=== PATIENT | male | born 1965 | race Caucasian/White ===

== ENCOUNTER 2018-07-28 21:45 | Emergency (ER) | payer OTHER ==
[~2018-07-28] VITALS: Ht 167.6 cm; Wt 123.8 kg
[~2018-07-28 21:45] MED LIST: ACIDOPHILUS CA1 EACH PO; ACTOS15 MG PO; ALLOPURINOL PO; ALPRAZOLAM0.5 MG PO; ASPIRIN81 MG PO; BISACODYL5 MG PO; CLONIDINE HCL0.1 MG PO; DIFLUCAN100 MG PO; DOXEPIN HCL10 MG PO; DOXYCYCLINE HY100 MG PO; EFFEXOR XR150 MG PO; GABAPENTIN100 MG PO; GLUCOPHAGE1000 MG PO; GLUCOPHAGE500 MG PO; HUMALOG SC; ISOSORBIDE DINI30 MG PO; LACTULOSE20 GM/30 M PO; LASIX20 MG PO; LEVEMIR100 UNIT/1 SC; LISINOPRIL5 MG PO; LITHIUM CARBON300 M2 PO; MAGNESIUM OXID400 MG PO; METHYLPHENIDATE10 MG PO; METOPROLOL SUCC25 MG PO; ONDANSETRON HCL4 MG PO; OXYCONTIN60 MG PO; PRAVASTATIN SOD20 MG PO; PYRIDOXINE HCL25 MG PO; RISPERIDONE1 MG PO; SPIRONOLACTONE50 MG PO; SUBOXONE 2 MG-1 EAC2 PO; SUBOXONE 8 MG-1 EAC2 SL; TAMSULOSIN HCL0.4 MG PO; THIAMINE PO; VITAMIN D400 UNIT PO; XANAX0.5 MG PO; XIFAXAN550 MG PO
--- OUTSIDE RECORDS SUMMARY | 2018-07-28 21:49 | XMS REPORT ---
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 Allergies, Adverse Reactions, Alerts Allergy Name Allergy Type Status Severity Reaction(s) Onset Date Inactive Date Treating Clinician Comments Penicillins DA Active SV 2018-07-18 00:00:00 iodine DA Active U 2018-07-18 00:00:00 propoxyphene DA Active U 2018-07-18 00:00:00 acetaminophen DA Active U 2018-07-18 00:00:00 hydrochlorothiazide DA Active U 2018-07-18 00:00:00 ketorolac DA Active U 2018-07-18 00:00:00 shellfish derived DA Active U 2018-07-18 00:00:00 Penicillins DA Active SV 2018-01-27 00:00:00 iodine DA Active U 2018-01-27 00:00:00 propoxyphene DA Active U 2018-01-27 00:00:00 acetaminophen DA Active U 2018-01-27 00:00:00 hydrochlorothiazide DA Active U 2018-01-27 00:00:00 ketorolac DA Active U 2018-01-27 00:00:00 Penicillins DA Active SV 2016-07-21 00:00:00 iodine DA Active U 2016-07-21 00:00:00 propoxyphene DA Active U 2016-07-21 00:00:00 acetaminophen DA Active U 2016-07-21 00:00:00 hydrochlorothiazide DA Active U 2016-07-21 00:00:00 ketorolac DA Active U 2016-07-21 00:00:00 SEAFOOD DA Active SV 2013-10-29 00:00:00 Medications This patient has no known medications. Results Test Description Test Time Test Comments Text Results Atomic Results Result Comments URINALYSIS COMPLETE 2018-07-18 22:08:00 UA COLOR (test code=COLU) LIGHT YELLOW YELLOW UA APPEARANCE (test code=APPU) CLEAR CLEAR UA GLUCOSE DIPSTICK (test code=DGLUU) NEGATIVE mg/dL NEGATIVE UA BILIRUBIN DIPSTICK (test code=BILU) NEGATIVE mg/dL NEGATIVE UA KETONE DIPSTICK (test code=KETU) Negative mg/dL NEGATIVE UA SPECIFIC GRAVITY (test code=SGU) 1.010 1.001-1.035 UA BLOOD DIPSTICK (test code=SHON) 3+ (Large) NEGATIVE UA PH DIPSTICK (test code=CARMEN) 6.0 5.0-8.0 UA PROTEIN DIPSTICK (test code=PROU) 30 (1+) mg/dL NEGATIVE UA UROBILINIOGEN DIPSTICK (test code=URO) NEGATIVE mg/dL NEGATIVE UA NITRITE DIPSTICK (test code=PAVEL) NEGATIVE NEGATIVE UA LEUKOCYTE ESTERASE W REFLEX (test code=LEUUR) 3+ NEGATIVE UA WBC (test code=WBCU) 21-50 #/HPF 0-5 UA RBC (test code=RBCU) >20 #/HPF 0-5 UA HYALINE CAST (test code=HYALU) 0-2 #/LPF 0-5 Urine Source? Clean CatchURINALYSIS [id number] 22:06:00* Test Item Value Reference Range Comments UA COLOR (test code=COLU) LIGHT YELLOW YELLOW UA APPEARANCE (test code=APPU) CLEAR CLEAR UA GLUCOSE DIPSTICK (test code=DGLUU) NEGATIVE mg/dL NEGATIVE UA BILIRUBIN DIPSTICK (test code=BILU) NEGATIVE mg/dL NEGATIVE UA KETONE DIPSTICK (test code=KETU) Negative mg/dL NEGATIVE UA SPECIFIC GRAVITY (test code=SGU) 1.010 1.001-1.035 UA BLOOD DIPSTICK (test code=SHON) 3+ (Large) NEGATIVE UA PH DIPSTICK (test code=CARMEN) 6.0 5.0-8.0 UA PROTEIN DIPSTICK (test code=PROU) 30 (1+) mg/dL NEGATIVE UA UROBILINIOGEN DIPSTICK (test code=URO) NEGATIVE mg/dL NEGATIVE UA NITRITE DIPSTICK (test code=PAVEL) NEGATIVE NEGATIVE UA LEUKOCYTE ESTERASE W REFLEX (test code=LEUUR) 3+ NEGATIVE UA WBC (test code=WBCU) per HPF 0-5 Urine Source? Clean CatchBASIC METABOLIC [id number] 20:00:00* Test Item Value Reference Range Comments SODIUM (test code=NA) 136 mmol/L 136-145 POTASSIUM (test code=K) 4.2 mmol/L 3.5-5.1 CHLORIDE (test code=CL) 100.0 mmol/L 98-107 CARBON DIOXIDE (test code=CO2) 27.0 mmol/L 21-32 ANION GAP (test code=GAP) 13.2 10-20 GLUCOSE (test code=GLU) 345 mg/dL 74-106 BLOOD UREA NITROGEN (test code=BUN) 19 mg/dL 7-18 GLOMERULAR FILTRATION RATE (test code=GFR) > 60 mL/min >=60 Estimated GFR by using Modified MDRD formula.Chronic kidney disease is defined as either kidney damageor GFR <60 mL/min/1.73 m2 for >3 months. CREATININE (test code=CREAT) 1.20 mg/dL 0.7-1.3 BUN/CREATININE RATIO (test code=BUN/CREA) 15.8 10-20 CALCIUM (test code=CA) 8.8 mg/dL 8.5-10.1 HEPATIC FUNCTION [id number] 20:00:00* Test Item Value Reference Range Comments TOTAL PROTEIN (test code=PROT) 7.7 gram/dL 6.4-8.2 ALBUMIN (test code=ALB) 3.1 g/dL 3.4-5.0 GLOBULIN (test code=GLOB) 4.6 gram/dL 2.7-4.2 ALBUMIN/GLOBULIN RATIO (test code=A/G) 0.7 0.75-1.50 BILIRUBIN TOTAL (test code=BILT) 0.40 mg/dL 0.0-1.0 BILIRUBIN DIRECT (test code=BILD) 0.19 mg/dL 0.0-0.20 SGOT/AST (test code=AST) 30 IUnit/L 15-37 SGPT/ALT (test code=ALT) 66 IUnit/L 12-78 ALKALINE PHOSPHATASE TOTAL (test code=ALKP) 166 IUnit/L 45-117 Note change in reference range due to change in reagent. CREATINE KINASE (CK)2018-07-18 20:00:00* Test Item Value Reference Range Comments CREATINE KINASE (CK) (test code=CK) 28 IUnit/L 26-208 [id number] 20:00:00* Test Item Value Reference Range Comments TROPONIN-I (test code=TROPI) <0.015 ng/mL 0-0.045 PROCALCITONIN (PCT)2018-07-18 19:49:00* Test Item Value Reference Range Comments PROCALCITONIN (PCT) (test code=PROCAL) 0.24 ng/ml Concentration Interpretation (ng/mL) <0.51 Sepsis is not likely. Local bacterial infection is possible. (LOW RISK for progression to Sepsis) 0.51 - 2.00 Sepsis is possible, but other conditions are known to elevate PCT as well. (MODERATE RISK for progression to Sepsis) > 2.00 Sepsis is likely, unless other causes are known. (HIGH RISK for progression to Severe Sepsis or Septic Shock) 10.00 High likelihood of Severe Sepsis or Septic or higher Shock. *Increased PCT levels may not always be related to systemic bacterial infection.*Low PCT levels do not automatically exclude the presence of bacterial infection.*All results should be interpreted taking into account the patients history. BASIC METABOLIC [id number] 19:44:00* Test Item Value Reference Range Comments SODIUM (test code=NA) 136 mmol/L 136-145 POTASSIUM (test code=K) 4.2 mmol/L 3.5-5.1 CHLORIDE (test code=CL) 100.0 mmol/L 98-107 CARBON DIOXIDE (test code=CO2) mmol/L 21-32 ANION GAP (test code=GAP) 10-20 GLUCOSE (test code=GLU) mg/dL 74-106 BLOOD UREA NITROGEN (test code=BUN) mg/dL 7-18 GLOMERULAR FILTRATION RATE (test code=GFR) mL/min >=60 CREATININE (test code=CREAT) mg/dL 0.7-1.3 BUN/CREATININE RATIO (test code=BUN/CREA) 10-20 CALCIUM (test code=CA) mg/dL 8.5-10.1 HEPATIC FUNCTION [id number] 19:44:00* Test Item Value Reference Range Comments TOTAL PROTEIN (test code=PROT) gram/dL 6.4-8.2 ALBUMIN (test code=ALB) g/dL 3.4-5.0 GLOBULIN (test code=GLOB) gram/dL 2.7-4.2 ALBUMIN/GLOBULIN RATIO (test code=A/G) 0.75-1.50 BILIRUBIN TOTAL (test code=BILT) mg/dL 0.0-1.0 BILIRUBIN DIRECT (test code=BILD) mg/dL 0.0-0.20 SGOT/AST (test code=AST) IUnit/L 15-37 SGPT/ALT (test code=ALT) IUnit/L 12-78 ALKALINE PHOSPHATASE TOTAL (test code=ALKP) IUnit/L 45-117 CREATINE KINASE (CK)2018-07-18 19:44:00* Test Item Value Reference Range Comments CREATINE KINASE (CK) (test code=CK) IUnit/L 26-208 [id number] 19:44:00* Test Item Value Reference Range Comments TROPONIN-I (test code=TROPI) ng/mL 0-0.045 LACTIC [id number] 19:25:00* Test Item Value Reference Range Comments LACTIC ACID (test code=LACT) 1.3 mmol/L 0.4-1.9 PROTHROMBIN [id number] 19:11:00* Test Item Value Reference Range Comments PROTHROMBIN TIME PATIENT (test code=PTP) 12.6 seconds 9.0-14.0 INTERNATIONAL NORMAL RATIO (test code=INR) 1.0 0.8-1.2 The therapeutic range for oral anticoagulant therapy formost indications is an international normalized ratio (INR)of between 2.0 and 3.0. The recommended therapeutic INRrange for various clinical situations is listed below: Clinical Situation INR range Pulmonary e mbolism treatment (2.0-3.0)Venous thrombosis treatmentVenous thrombosis prophylaxis (high risk surgery)Prevention of systemic embolism from: Acute myocardial infarction Valvular heart disease Atrial fibrillation Mechanical prosthetic heart valves (2.5-3.5) IS PATIENT ON ANTICOAGULANTS? NTHROMBOPLASTIN TIME [id number] 19:11:00* Test Item Value Reference Range Comments THROMBOPLASTIN TIME PARTIAL (test code=PTT) 28.3 seconds 25.0-36.5 IS PATIENT ON ANTICOAGULANTS? NCBC W/AUTO [id number] 19:05:00* Test Item Value Reference Range Comments WHITE BLOOD CELL (test code=WBC) 6.3 K/mm3 4.5-12.5 RED BLOOD CELL (test code=RBC) 4.17 mill/mm3 4.0-5.8 HEMOGLOBIN (test code=HGB) 10.7 gram/dL 13.0-17.5 HEMATOCRIT (test code=HCT) 33.9 % 42.0-52.0 MEAN CELL VOLUME (test code=MCV) 81.3 fL 80-98 MEAN CELL HGB (test code=MCH) 25.7 picogram 27.0-33.0 MEAN CELL HGB CONCETRATION (test code=MCHC) 31.6 gram/dL 33.0-36.0 RED CELL DISTRIBUTION WIDTH (test code=RDW) 13.6 % 11.6-16.2 RED CELL DISTRIBUTION WIDTH SD (test code=RDW-SD) 39.8 fL 37.0-51.0 PLATELET COUNT (test code=PLT) 136 K/mm3 150-450 MEAN PLATELET VOLUME (test code=MPV) 12.2 fL 6.7-11.0 NEUTROPHIL % (test code=NT%) 60.7 % 39.0-69.0 IMMATURE GRANULOCYTE % (test code=IG%) 0.5 % 0.0-5.0 LYMPHOCYTE % (test code=LY%) 25.8 % 25.0-55.0 MONOCYTE % (test code=MO%) 9.6 % 0.0-10.0 EOSINOPHIL % (test code=EO%) 2.9 % 0.0-5.0 BASOPHIL % (test code=BA%) 0.5 % 0.0-1.0 NUCLEATED RBC % (test code=NRBC%) 0.0 % 0-0 NEUTROPHIL # (test code=NT#) 3.82 K/mm3 1.8-7.7 IMMATURE GRANULOCYTE # (test code=IG#) 0.03 x10 3/uL 0-0.03 LYMPHOCYTE # (test code=LY#) 1.62 K/mm3 1.0-5.0 MONOCYTE # (test code=MO#) 0.60 K/mm3 0-0.8 EOSINOPHIL # (test code=EO#) 0.18 K/mm3 0.0-0.5 BASOPHIL # (test code=BA#) 0.03 K/mm3 0.0-0.2 NUCLEATED RBC # (test code=NRBC#) 0.00 K/mm3 0.0-0.1 MANUAL DIFF REQUIRED (test code=MDIFF) NO - XR CHEST 1 [id number] 19:05:00 FAX: Yamila Doyle MD [phone] [place]: St: REG Name: AGUSTÍN STERN [facility] : [birth year] 68 Age/S: 52/M [address] Count Includes [facility] Unit #: [id number] Loc: [place], [place] [address] Phys: Yamila Doyle MD Acct: [id number] Dis Date: Status: REG ER PHONE #: [phone] Exam Date: 07/18/2018 1850 FAX #: [phone] Reason: CODE SEPSIS EXAMS: CPT CODE: [id number] XR CHEST 1 V 81014 EXAM: Chest X-ray, 1 view; CLINICAL HISTORY: Code sepsis; FINDINGS: The lungs are clear, no infiltrates, no edema; no effusions; no pneumothorax; normal cardiomediastinal silhouette. IMPRESSION: Normal chest x-ray. at 1905 Reported and signed by: Ap Blancas M.D. CC: Yamial Doyle MD Technologist: Bobby Skinner RT(R); FELTON MEDINA RT (R) Trnscrd Date/Time/By: 07/18/2018 (1904) : By: DailyGRW Orig Print D/T: S: 07/18/2018 (1907) PAGE 1 Signed Report POC LACTIC [id number] 18:46:00* Test Item Value Reference Range Comments POC LACTIC ACID (test code=POCLAC) 1.45 MMOL/L 0.4-2.2 [id number] 13:30:00* Test Item Value Reference Range Comments GLUBED (test code=GLUBED) 219 MG/DL 70-110 Performed by certified assistant refinery operator at [facility] [id number] 08:01:00* Test Item Value Reference Range Comments GLUBED (test code=GLUBED) 103 MG/DL 70-110 Performed by certified assistant refinery operator at [facility] [id number] 21:16:00* Test Item Value Reference Range Comments GLUBED (test code=GLUBED) 122 MG/DL 70-110 Performed by certified assistant refinery operator at [facility] [id number] 20:39:00* Test Item Value Reference Range Comments GLUBED (test code=GLUBED) 109 MG/DL 70-110 Performed by certified assistant refinery operator at [facility] [id number] 17:13:00* Test Item Value Reference Range Comments GLUBED (test code=GLUBED) 106 MG/DL 70-110 Performed by certified assistant refinery operator at [facility] [id number] 16:58:00* Test Item Value Reference Range Comments MICHELLE (test code=GLUJAK) 179 MG/DL 70-110 Performed by certified assistant refinery operator at [facility] - XR CHEST 1 [id number] 12:02:00 FAX: Kin Doss JR, MD [phone] [place]: St: ADM Name: Shaan WARRENAGUSTÍN Jamila [facility] : [birth year] 68 Age/S: 52/M [address] [place] [address] Unit #: [id number] Loc: G.6627 [place] [address] Phys: Kin Barnes JR, MD Acct: [id number] Dis Date: Status: ADM IN PHONE #: [phone] Exam Date: 06/30/2018 1125 FAX #: [phone] Reason: PREOP PROTOCOL EXAMS: CPT CODE: [id number] XR CHEST 1 V 08504 CHEST, ONE VIEW: H ISTORY: Preoperative evaluation. Cholelithiasis. COMPARISON EXAM( S): Prior chest x-ray of May 2016 FINDINGS: This single port able view was obtained at 0941 hours on 06/30/2018 with the patient slightl y rotated to the right. The image was obtained in a shallow degree of ins piration. Cardiac silhouette is mildly enlarged but stable. Minim al, generalized hazy density over the left lung is thought to be due to the rotation and technique. No dominant infiltrates, effusions or jossue dence of pneumothorax. A skin staple is projected over the right i nferior chest. Review of the previous CT scan from December 2017 shows this to be in the immediate subcutaneous tissues along the posterolateral right chest wall. IMPRESSION: 1. Shallow inspiration with no definite acute abnormality. 2. Minimal haziness over the left h emithorax is thought to be due to patient rotation and technique. 3. Residual skin staple noted in the subcutaneous tissues in the post erolateral right chest wall. SL:01 at 1202 Reported and signed by: Asa Stokes M.D. CC: Kin Barnes JR, MD Technologist: RT Mary Beth(Dorothy) Trnscrd Date/Time/By: 06/30/2018 (3466) : By: Sakshi/Darling.RAJAN Orig Print D/T: S: 06/30/2018 (5316) PAGE 1 Signed Report GLUBED 2018-06-30 08:54:00* Test Item Value Reference Range Comments GLUBED (test code=GLUBED) 178 MG/DL 70-110 Performed by certified assistant refinery operator at [facility] BASIC METABOLIC [id number] 08:51:00* Test Item Value Reference Range Comments SODIUM (test code=NA) 139 mEq/L 134-147 POTASSIUM (test code=K) 4.2 mEq/L 3.4-5.0 CHLORIDE (test code=CL) 108 mEq/L 100-108 CARBON DIOXIDE (test code=CO2) 25 mEq/L 21-33 ANION GAP (test code=GAP) 10 0-20 GLUCOSE (test code=GLU) 188 mg/dL 70-110 BLOOD UREA NITROGEN (test code=BUN) 11 mg/dL 7-18 GLOMERULAR FILTRATION RATE (test code=GFR) 101.9 90-95 Units of measure=ml/min/1.73 m2 CREATININE (test code=CREAT) 0.8 mg/dL 0.6-1.3 CALCIUM (test code=CA) 8.7 mg/dL 8.0-10.5 THROMBOPLASTIN TIME [id number] 08:23:00* Test Item Value Reference Range Comments THROMBOPLASTIN TIME PARTIAL (test code=PTT) 35.9 Seconds 25.0-39.5 Therapeutic Range: 61.8-83.8 Sec Effective 06/08/2013 CBC W/AUTO [id number] 08:13:00* Test Item Value Reference Range Comments WHITE BLOOD CELL (test code=WBC) 5.67 x10 3/uL 4.5-11.0 RED BLOOD CELL (test code=RBC) 3.93 x10 6/uL 4.00-5.60 HEMOGLOBIN (test code=HGB) 10.5 g/dL 12.5-16.9 HEMATOCRIT (test code=HCT) 34.2 % 37.5-50.7 MEAN CELL VOLUME (test code=MCV) 87.0 fL 81.0-99.0 MEAN CELL HGB (test code=MCH) 26.7 pg 27.0-33.0 MEAN CELL HGB CONCETRATION (test code=MCHC) 30.7 g/dL 33.0-37.0 RED CELL DISTRIBUTION WIDTH CV (test code=RDW) 13.0 % 11.5-14.5 RED CELL DISTRIBUTION WIDTH SD (test code=RDW-SD) 41.2 fL 37.0-54.0 PLATELET COUNT (test code=PLT) 156 x10 3/uL 150-400 MEAN PLATELET VOLUME (test code=MPV) 11.3 fL 7.0-9.0 NEUTROPHIL % (test code=NT%) 60.1 % 56.0-77.0 IMMATURE GRANULOCYTE % (test code=IG%) 0.5 % 0.0-2.0 LYMPHOCYTE % (test code=LY%) 28.0 % 14.0-32.0 MONOCYTE % (test code=MO%) 7.9 % 4.8-9.0 EOSINOPHIL % (test code=EO%) 2.8 % 0.3-3.7 BASOPHIL % (test code=BA%) 0.7 % 0.0-2.0 NUCLEATED RBC % (test code=NRBC%) 0.0 % 0-0 NEUTROPHIL # (test code=NT#) 3.40 x10 3/uL 2.0-7.6 IMMATURE GRANULOCYTE # (test code=IG#) 0.03 x10 3/uL 0.00-0.03 LYMPHOCYTE # (test code=LY#) 1.59 x10 3/uL 1.0-3.8 MONOCYTE # (test code=MO#) 0.45 x10 3/uL 0.1-0.8 EOSINOPHIL # (test code=EO#) 0.16 x10 3/uL 0.0-0.2 BASOPHIL # (test code=BA#) 0.04 x10 3/uL 0.0-0.2 NUCLEATED RBC # (test code=NRBC#) 0.00 x10 3/uL 0.0-0.1 MANUAL DIFF REQUIRED (test code=MDIFF) NO [id number] 04:56:00* Test Item Value Reference Range Comments GLUBED (test code=GLUBED) 214 MG/DL 70-110 Performed by certified assistant refinery operator at [facility] [id number] 00:41:00* Test Item Value Reference Range Comments GLUBED (test code=GLUBED) 234 MG/DL 70-110 Performed by certified assistant refinery operator at [facility] [id number] 20:28:00* Test Item Value Reference Range Comments GLUBED (test code=GLUBED) 151 MG/DL 70-110 Performed by certified assistant refinery operator at [facility] [id number] 16:40:00* Test Item Value Reference Range Comments GLUBED (test code=GLUBED) 170 MG/DL 70-110 Performed by certified assistant refinery operator at [facility] [id number] 12:57:00* Test Item Value Reference Range Comments GLUBED (test code=GLUBED) 222 MG/DL 70-110 Performed by certified assistant refinery operator at [facility] [id number] 09:14:00* Test Item Value Reference Range Comments GLUBED (test code=GLUBED) 230 MG/DL 70-110 Performed by certified assistant refinery operator at [facility] [id number] 20:59:00* Test Item Value Reference Range Comments GLUBED (test code=GLUBED) 306 MG/DL 70-110 Performed by certified assistant refinery operator at [facility] [id number] 17:46:00* Test Item Value Reference Range Comments GLUBED (test code=GLUBED) 287 MG/DL 70-110 Performed by certified assistant refinery operator at [facility] COMPREHENSIVE METABOLIC [id number] 14:19:00* Test Item Value Reference Range Comments SODIUM (test code=NA) 139 mEq/L 134-147 POTASSIUM (test code=K) 4.1 mEq/L 3.4-5.0 CHLORIDE (test code=CL) 106 mEq/L 100-108 CARBON DIOXIDE (test code=CO2) 28 mEq/L 21-33 ANION GAP (test code=GAP) 9 0-20 GLUCOSE (test code=GLU) 201 mg/dL 70-110 BLOOD UREA NITROGEN (test code=BUN) 8 mg/dL 7-18 GLOMERULAR FILTRATION RATE (test code=GFR) 101.9 90-95 Units of measure=ml/min/1.73 m2 CREATININE (test code=CREAT) 0.8 mg/dL 0.6-1.3 TOTAL PROTEIN (test code=PROT) 6.5 g/dL 6.4-8.2 ALBUMIN (test code=ALB) 2.30 g/dL 3.4-5.0 CALCIUM (test code=CA) 8.4 mg/dL 8.0-10.5 BILIRUBIN TOTAL (test code=BILT) 0.30 mg/dL 0.0-1.0 SGOT/AST (test code=AST) 26 IUnit/L 15-37 SGPT/ALT (test code=ALT) 33 IUnit/L 15-65 ALKALINE PHOSPHATASE TOTAL (test code=ALKP) 130 IUnit/L 20-125 [id number] 14:19:00* Test Item Value Reference Range Comments AMYLASE (test code=TJ) 27 UNITS/L 25-115 [id number] 14:19:00* Test Item Value Reference Range Comments LIPASE (test code=LIP) 42 IUnit/L 73-393 COMPREHENSIVE METABOLIC [id number] 14:11:00* Test Item Value Reference Range Comments SODIUM (test code=NA) 139 mEq/L 134-147 POTASSIUM (test code=K) 4.1 mEq/L 3.4-5.0 CHLORIDE (test code=CL) 106 mEq/L 100-108 CARBON DIOXIDE (test code=CO2) 28 mEq/L 21-33 ANION GAP (test code=GAP) 9 0-20 GLUCOSE (test code=GLU) 201 mg/dL 70-110 BLOOD UREA NITROGEN (test code=BUN) 8 mg/dL 7-18 GLOMERULAR FILTRATION RATE (test code=GFR) 101.9 90-95 Units of measure=ml/min/1.73 m2 CREATININE (test code=CREAT) 0.8 mg/dL 0.6-1.3 TOTAL PROTEIN (test code=PROT) g/dL 6.4-8.2 ALBUMIN (test code=ALB) 2.30 g/dL 3.4-5.0 CALCIUM (test code=CA) 8.4 mg/dL 8.0-10.5 BILIRUBIN TOTAL (test code=BILT) mg/dL 0.0-1.0 SGOT/AST (test code=AST) 26 IUnit/L 15-37 SGPT/ALT (test code=ALT) 33 IUnit/L 15-65 ALKALINE PHOSPHATASE TOTAL (test code=ALKP) IUnit/L 20-125 [id number] 14:11:00* Test Item Value Reference Range Comments AMYLASE (test code=TJ) UNITS/L 25-115 [id number] 14:11:00* Test Item Value Reference Range Comments LIPASE (test code=LIP) 42 IUnit/L 73-393 CBC W/AUTO [id number] 14:06:00* Test Item Value Reference Range Comments WHITE BLOOD CELL (test code=WBC) 6.73 x10 3/uL 4.5-11.0 RED BLOOD CELL (test code=RBC) 4.07 x10 6/uL 4.00-5.60 HEMOGLOBIN (test code=HGB) 11.0 g/dL 12.5-16.9 HEMATOCRIT (test code=HCT) 34.9 % 37.5-50.7 MEAN CELL VOLUME (test code=MCV) 85.7 fL 81.0-99.0 MEAN CELL HGB (test code=MCH) 27.0 pg 27.0-33.0 MEAN CELL HGB CONCETRATION (test code=MCHC) 31.5 g/dL 33.0-37.0 RED CELL DISTRIBUTION WIDTH CV (test code=RDW) 13.1 % 11.5-14.5 RED CELL DISTRIBUTION WIDTH SD (test code=RDW-SD) 40.6 fL 37.0-54.0 PLATELET COUNT (test code=PLT) 155 x10 3/uL 150-400 MEAN PLATELET VOLUME (test code=MPV) 11.2 fL 7.0-9.0 NEUTROPHIL % (test code=NT%) 67.4 % 56.0-77.0 IMMATURE GRANULOCYTE % (test code=IG%) 0.6 % 0.0-2.0 LYMPHOCYTE % (test code=LY%) 21.5 % 14.0-32.0 MONOCYTE % (test code=MO%) 7.7 % 4.8-9.0 EOSINOPHIL % (test code=EO%) 2.4 % 0.3-3.7 BASOPHIL % (test code=BA%) 0.4 % 0.0-2.0 NUCLEATED RBC % (test code=NRBC%) 0.0 % 0-0 NEUTROPHIL # (test code=NT#) 4.53 x10 3/uL 2.0-7.6 IMMATURE GRANULOCYTE # (test code=IG#) 0.04 x10 3/uL 0.00-0.03 LYMPHOCYTE # (test code=LY#) 1.45 x10 3/uL 1.0-3.8 MONOCYTE # (test code=MO#) 0.52 x10 3/uL 0.1-0.8 EOSINOPHIL # (test code=EO#) 0.16 x10 3/uL 0.0-0.2 BASOPHIL # (test code=BA#) 0.03 x10 3/uL 0.0-0.2 NUCLEATED RBC # (test code=NRBC#) 0.00 x10 3/uL 0.0-0.1 MANUAL DIFF REQUIRED (test code=MDIFF) NO [id number] 12:27:00* Test Item Value Reference Range Comments GLUBED (test code=GLUBED) 172 MG/DL 70-110 Performed by certified assistant refinery operator at [facility] [id number] 10:42:00* Test Item Value Reference Range Comments GLUBED (test code=GLUBED) 96 MG/DL 70-110 Performed by certified assistant refinery operator at [facility] - [place] ABDOMEN [id number] 09:37:00 Name: AGUSTÍN FLOOD [facility] : 1965 Age/S: 52 / M [address] [place] [address] Unit #: [id number] Loc: [place] [address] Phys: Lashawn Gibson TRIPE SCRAPER Acct: [id number] Dis Date: Status: ADM IN PHONE #: [phone] Exam Date: 06/28/2018922 FAX #: [phone] Reason: RUQ PAIN EXAMS: CPT CODE: [id number] ABDOMEN LTD [id number] PROCEDURE: ABDOMINAL ULTRASOUND INDICATION: 52-year-old male with right upper quadrant abdominal pain COMPARISON: CT abdomen/pelvis 12/12/2017 TECHNIQUE: Sonographic evaluation of the abdomen was performed with supplemental color and pulsed Doppler. FINDINGS: LIVER: The liver is normal in size, contour and morphology with increased parenchymal echogenicity. GALLBLADDER: Gallstones noted. No pericholecystic fluid or wall thickening. Negative sonographic Melendez sign. BILE DUCTS: No biliary dilatation. The common duct measures 4 mm. PANCREAS: The visualized pancreas appears normal. Portions of the body and tail are obscured by bowel gas. KIDNEYS: The right kidney measures 10.7 cm in length. Normal contour and parenchymal echogenicity. There is no hydronephrosis, nephrolithiasis, mass lesion or perinephric co llection. A 1.7 x 1.4 x 1.7 cm upper pole cyst is noted. Addition al comments: No free intraperitoneal fluid. IMPRESSION: 1. Mildly increased echogenicity of the liver parenchyma suggestive of fatty infiltration. 2. Cholelithiasis. 3. Right upper pole renal cyst. SL: [id number] Elec tronically Signed by Harshad Fairbanks on 06/28/2018 at 0937 Reported and signed by: Carly Fairbanks M.D. PAGE 1 Signed Report (CONTINUED) Name: AGUSTÍN FLOOD [facility] : 1965 Age/S: 52 / M [address] [place] [address] Blvd Unit #: [id number] Loc: [place] [address] Phys: Lashawn Gibson TRIPE SCRAPER Acct: [id number] Dis Date: Status: ADM IN PHONE #: [phone] Exam Date: 0923 FAX #: [phone] Reason: RUQ PAIN EXAMS: CPT CODE: [id number] ABDOMEN LTD 29173 <Continued> CC: Lashawn Gibson NP Technologist: Tiffani Ramirez RDMS(A)(OB) Trnscb Date/Time: 06/28/2018 (0937) [email or web address] Orig Print D/T: S: 06/28/2018 (0941) Probe: PAGE 2 Signed Report [id number] 08:28:00* Test Item Value Reference Range Comments GLUBED (test code=GLUBED) 150 MG/DL 70-110 Performed by certified assistant refinery operator at [facility] [id number] 20:14:00* Test Item Value Reference Range Comments GLUBED (test code=GLUBED) 130 MG/DL 70-110 Performed by certified assistant refinery operator at [facility] [id number] 17:10:00* Test Item Value Reference Range Comments GLUBED (test code=GLUBED) 219 MG/DL 70-110 Performed by certified assistant refinery operator at [facility] [id number] 13:54:00* Test Item Value Reference Range Comments GLUBED (test code=GLUBED) 308 MG/DL 70-110 Performed by certified assistant refinery operator at [facility] [id number] 12:37:00* Test Item Value Reference Range Comments GLUBED (test code=GLUBED) 314 MG/DL 70-110 Performed by certified assistant refinery operator at [facility] [id number] 21:18:00* Test Item Value Reference Range Comments GLUBED (test code=GLUBED) 114 MG/DL 70-110 Performed by certified assistant refinery operator at [facility] [id number] 20:25:00* Test Item Value Reference Range Comments GLUBED (test code=GLUBED) 129 MG/DL 70-110 Performed by certified assistant refinery operator at [facility] [id number] 17:32:00* Test Item Value Reference Range Comments GLUBED (test code=GLUBED) 180 MG/DL 70-110 Performed by certified assistant refinery operator at [facility] [id number] 12:40:00* Test Item Value Reference Range Comments GLUBED (test code=GLUBED) 220 MG/DL 70-110 Performed by certified assistant refinery operator at [facility] [id number] 08:12:00* Test Item Value Reference Range Comments GLUBED (test code=GLUBED) 329 MG/DL 70-110 Performed by certified assistant refinery operator at [facility] BASIC METABOLIC [id number] 08:07:00* Test Item Value Reference Range Comments SODIUM (test code=NA) 137 mEq/L 134-147 POTASSIUM (test code=K) 4.0 mEq/L 3.4-5.0 CHLORIDE (test code=CL) 104 mEq/L 100-108 CARBON DIOXIDE (test code=CO2) 27 mEq/L 21-33 ANION GAP (test code=GAP) 10 0-20 GLUCOSE (test code=GLU) 331 mg/dL 70-110 BLOOD UREA NITROGEN (test code=BUN) 11 mg/dL 7-18 GLOMERULAR FILTRATION RATE (test code=GFR) 89.0 90-95 Units of measure=ml/min/1.73 m2 CREATININE (test code=CREAT) 0.9 mg/dL 0.6-1.3 CALCIUM (test code=CA) 8.6 mg/dL 8.0-10.5 CBC W/AUTO [id number] 07:59:00* Test Item Value Reference Range Comments WHITE BLOOD CELL (test code=WBC) 5.24 x10 3/uL 4.5-11.0 RED BLOOD CELL (test code=RBC) 4.28 x10 6/uL 4.00-5.60 HEMOGLOBIN (test code=HGB) 11.5 g/dL 12.5-16.9 HEMATOCRIT (test code=HCT) 36.6 % 37.5-50.7 MEAN CELL VOLUME (test code=MCV) 85.5 fL 81.0-99.0 MEAN CELL HGB (test code=MCH) 26.9 pg 27.0-33.0 MEAN CELL HGB CONCETRATION (test code=MCHC) 31.4 g/dL 33.0-37.0 RED CELL DISTRIBUTION WIDTH CV (test code=RDW) 13.2 % 11.5-14.5 RED CELL DISTRIBUTION WIDTH SD (test code=RDW-SD) 40.7 fL 37.0-54.0 PLATELET COUNT (test code=PLT) 156 x10 3/uL 150-400 MEAN PLATELET VOLUME (test code=MPV) 11.5 fL 7.0-9.0 NEUTROPHIL % (test code=NT%) 57.6 % 56.0-77.0 IMMATURE GRANULOCYTE % (test code=IG%) 0.2 % 0.0-2.0 LYMPHOCYTE % (test code=LY%) 32.1 % 14.0-32.0 MONOCYTE % (test code=MO%) 7.8 % 4.8-9.0 EOSINOPHIL % (test code=EO%) 1.5 % 0.3-3.7 BASOPHIL % (test code=BA%) 0.8 % 0.0-2.0 NUCLEATED RBC % (test code=NRBC%) 0.0 % 0-0 NEUTROPHIL # (test code=NT#) 3.02 x10 3/uL 2.0-7.6 IMMATURE GRANULOCYTE # (test code=IG#) 0.01 x10 3/uL 0.00-0.03 LYMPHOCYTE # (test code=LY#) 1.68 x10 3/uL 1.0-3.8 MONOCYTE # (test code=MO#) 0.41 x10 3/uL 0.1-0.8 EOSINOPHIL # (test code=EO#) 0.08 x10 3/uL 0.0-0.2 BASOPHIL # (test code=BA#) 0.04 x10 3/uL 0.0-0.2 NUCLEATED RBC # (test code=NRBC#) 0.00 x10 3/uL 0.0-0.1 MANUAL DIFF REQUIRED (test code=MDIFF) NO [id number] 20:18:00* Test Item Value Reference Range Comments GLUBED (test code=GLUBED) 194 MG/DL 70-110 Performed by certified assistant refinery operator at [facility] [id number] 17:50:00* Test Item Value Reference Range Comments GLUBED (test code=GLUBED) 147 MG/DL 70-110 Performed by certified assistant refinery operator at [facility] [id number] 12:32:00* Test Item Value Reference Range Comments GLUBED (test code=GLUBED) 190 MG/DL 70-110 Performed by certified assistant refinery operator at [facility] [id number] 12:32:00* Test Item Value Reference Range Comments GLUBED (test code=GLUBED) 173 MG/DL 70-110 Performed by certified assistant refinery operator at [facility] [id number] 09:54:00* Test Item Value Reference Range Comments GLUBED (test code=GLUBED) 247 MG/DL 70-110 Performed by certified assistant refinery operator at [facility] BASIC METABOLIC [id number] 08:12:00* Test Item Value Reference Range Comments SODIUM (test code=NA) 138 mEq/L 134-147 POTASSIUM (test code=K) 3.8 mEq/L 3.4-5.0 CHLORIDE (test code=CL) 106 mEq/L 100-108 CARBON DIOXIDE (test code=CO2) 29 mEq/L 21-33 ANION GAP (test code=GAP) 7 0-20 GLUCOSE (test code=GLU) 174 mg/dL 70-110 BLOOD UREA NITROGEN (test code=BUN) 10 mg/dL 7-18 GLOMERULAR FILTRATION RATE (test code=GFR) 118.9 90-95 Units of measure=ml/min/1.73 m2 CREATININE (test code=CREAT) 0.7 mg/dL 0.6-1.3 CALCIUM (test code=CA) 8.5 mg/dL 8.0-10.5 CBC W/AUTO [id number] 07:50:00* Test Item Value Reference Range Comments WHITE BLOOD CELL (test code=WBC) 5.20 x10 3/uL 4.5-11.0 RED BLOOD CELL (test code=RBC) 4.39 x10 6/uL 4.00-5.60 HEMOGLOBIN (test code=HGB) 11.7 g/dL 12.5-16.9 HEMATOCRIT (test code=HCT) 37.6 % 37.5-50.7 MEAN CELL VOLUME (test code=MCV) 85.6 fL 81.0-99.0 MEAN CELL HGB (test code=MCH) 26.7 pg 27.0-33.0 MEAN CELL HGB CONCETRATION (test code=MCHC) 31.1 g/dL 33.0-37.0 RED CELL DISTRIBUTION WIDTH CV (test code=RDW) 13.0 % 11.5-14.5 RED CELL DISTRIBUTION WIDTH SD (test code=RDW-SD) 40.7 fL 37.0-54.0 PLATELET COUNT (test code=PLT) 163 x10 3/uL 150-400 MEAN PLATELET VOLUME (test code=MPV) 11.7 fL 7.0-9.0 NEUTROPHIL % (test code=NT%) 46.5 % 56.0-77.0 IMMATURE GRANULOCYTE % (test code=IG%) 1.0 % 0.0-2.0 LYMPHOCYTE % (test code=LY%) 39.6 % 14.0-32.0 MONOCYTE % (test code=MO%) 10.2 % 4.8-9.0 EOSINOPHIL % (test code=EO%) 1.9 % 0.3-3.7 BASOPHIL % (test code=BA%) 0.8 % 0.0-2.0 NUCLEATED RBC % (test code=NRBC%) 0.0 % 0-0 NEUTROPHIL # (test code=NT#) 2.42 x10 3/uL 2.0-7.6 IMMATURE GRANULOCYTE # (test code=IG#) 0.05 x10 3/uL 0.00-0.03 LYMPHOCYTE # (test code=LY#) 2.06 x10 3/uL 1.0-3.8 MONOCYTE # (test code=MO#) 0.53 x10 3/uL 0.1-0.8 EOSINOPHIL # (test code=EO#) 0.10 x10 3/uL 0.0-0.2 BASOPHIL # (test code=BA#) 0.04 x10 3/uL 0.0-0.2 NUCLEATED RBC # (test code=NRBC#) 0.00 x10 3/uL 0.0-0.1 MANUAL DIFF REQUIRED (test code=MDIFF) NO [id number] 17:55:00* Test Item Value Reference Range Comments GLUBED (test code=GLUBED) 257 MG/DL 70-110 Performed by certified assistant refinery operator at [facility] [id number] 16:22:00* Test Item Value Reference Range Comments GLUBED (test code=GLUBED) 262 MG/DL 70-110 Performed by certified assistant refinery operator at [facility] VITAMIN D [id number] 09:34:00* Test Item Value Reference Range Comments VITAMIN D 25-HYDROXY (test code=VITD25) 12.0 ng/mL 30-100 BASIC METABOLIC [id number] 08:38:00* Test Item Value Reference Range Comments SODIUM (test code=NA) 138 mEq/L 134-147 POTASSIUM (test code=K) 3.9 mEq/L 3.4-5.0 CHLORIDE (test code=CL) 105 mEq/L 100-108 CARBON DIOXIDE (test code=CO2) 26 mEq/L 21-33 ANION GAP (test code=GAP) 11 0-20 GLUCOSE (test code=GLU) 272 mg/dL 70-110 BLOOD UREA NITROGEN (test code=BUN) 8 mg/dL 7-18 GLOMERULAR FILTRATION RATE (test code=GFR) 101.9 90-95 Units of measure=ml/min/1.73 m2 CREATININE (test code=CREAT) 0.8 mg/dL 0.6-1.3 CALCIUM (test code=CA) 8.4 mg/dL 8.0-10.5 [id number] 08:38:00* Test Item Value Reference Range Comments LIPASE (test code=LIP) 49 IUnit/L 73-393 [id number] 08:38:00* Test Item Value Reference Range Comments PREALBUMIN (test code=PREALB) 14.6 mg/dL 16.0-40.0 [id number] 08:30:00* Test Item Value Reference Range Comments GLUBED (test code=GLUBED) 259 MG/DL 70-110 Performed by certified assistant refinery operator at [facility] CBC W/AUTO [id number] 08:15:00* Test Item Value Reference Range Comments WHITE BLOOD CELL (test code=WBC) 4.22 x10 3/uL 4.5-11.0 RED BLOOD CELL (test code=RBC) 4.57 x10 6/uL 4.00-5.60 HEMOGLOBIN (test code=HGB) 12.2 g/dL 12.5-16.9 HEMATOCRIT (test code=HCT) 39.0 % 37.5-50.7 MEAN CELL VOLUME (test code=MCV) 85.3 fL 81.0-99.0 MEAN CELL HGB (test code=MCH) 26.7 pg 27.0-33.0 MEAN CELL HGB CONCETRATION (test code=MCHC) 31.3 g/dL 33.0-37.0 RED CELL DISTRIBUTION WIDTH CV (test code=RDW) 13.1 % 11.5-14.5 RED CELL DISTRIBUTION WIDTH SD (test code=RDW-SD) 40.5 fL 37.0-54.0 PLATELET COUNT (test code=PLT) 168 x10 3/uL 150-400 MEAN PLATELET VOLUME (test code=MPV) 11.5 fL 7.0-9.0 NEUTROPHIL % (test code=NT%) 49.8 % 56.0-77.0 IMMATURE GRANULOCYTE % (test code=IG%) 0.5 % 0.0-2.0 LYMPHOCYTE % (test code=LY%) 38.6 % 14.0-32.0 MONOCYTE % (test code=MO%) 8.5 % 4.8-9.0 EOSINOPHIL % (test code=EO%) 2.1 % 0.3-3.7 BASOPHIL % (test code=BA%) 0.5 % 0.0-2.0 NUCLEATED RBC % (test code=NRBC%) 0.0 % 0-0 NEUTROPHIL # (test code=NT#) 2.10 x10 3/uL 2.0-7.6 IMMATURE GRANULOCYTE # (test code=IG#) 0.02 x10 3/uL 0.00-0.03 LYMPHOCYTE # (test code=LY#) 1.63 x10 3/uL 1.0-3.8 MONOCYTE # (test code=MO#) 0.36 x10 3/uL 0.1-0.8 EOSINOPHIL # (test code=EO#) 0.09 x10 3/uL 0.0-0.2 BASOPHIL # (test code=BA#) 0.02 x10 3/uL 0.0-0.2 NUCLEATED RBC # (test code=NRBC#) 0.00 x10 3/uL 0.0-0.1 MANUAL DIFF REQUIRED (test code=MDIFF) NO [id number] 22:28:00* Test Item Value Reference Range Comments GLUBED (test code=GLUBED) 276 MG/DL 70-110 Performed by certified assistant refinery operator at [facility] [id number] 16:12:00* Test Item Value Reference Range Comments GLUBED (test code=GLUBED) 350 MG/DL 70-110 Performed by certified assistant refinery operator at [facility] [id number] 13:26:00* Test Item Value Reference Range Comments GLUBED (test code=GLUBED) 248 MG/DL 70-110 Performed by certified assistant refinery operator at [facility] - XR TIBIA/FIBULA 2 V [id number] 13:11:00 FAX: Araceli Friend MD [phone] [place]: St: ADM Name: Shaan WARRENAGUSTÍN [facility] : [birth year] Age/S: 52/M [address] [place] [address] Unit #: [id number] Loc: [place] 139518 Phys: Araceli Maloney MD Acct: [id number] Dis Date: Status: ADM IN PHONE #: [phone] Exam Date: 06/23/2018 1300 FAX #: [phone] Reason: open leg wound EXAMS: CPT CODE: [id number] XR TIBIA/FIBUL[place] 2 [place] [id number] Right lower leg 2 view HISTORY: Open right leg wound. Comparison made to 07/25/14 FINDINGS: There is pretibial subcutaneous edema. There is no fracture, focal bony destruction. Tricompartment degenerative change noted at the right knee. IMPRESSION: 1. Pretibial subcutaneous edema consistent with history. 2. No acute os seous abnormality. SL:01 Electronically Si gned by Harshad Hernández on 06/23/2018 at 1311 Reported and signed by: Edwin Hernández M.D. CC: Araceli Maloney MD Technologist: RT Alicia(R) Trnscrd Date/Time/By: 06/23/2018 (1311) : By: Kirti Orig Print D/T: S: 06/23/2018 (1278) PAGE 1 Signed R eport - US RETROPERITONEAL [id number] 10:09:00 Name: AGUSTÍN FLOOD [facility] : 1965 Age/S: 52 / M [address] [place] [address] Unit #: [id number] Loc: [place] [address] Phys: Renea Bay NP Acct: [id number] Di s Date: Status: ADM IN PHONE #: Exam Date: 06/23/2018 0944 FAX #: Reason: Flank pain EXAMS: CPT CODE: [id number] RETROPERIT RODRIGUEZ COM [id number] Patient: AGUSTÍN FLOOD. : 1965; Age: 52 years; Gender: Male. MR: [id number]. Ordering physician: Aiden Bay NP. PROCEDURE: RENAL ULTRASOUND INDICATION: Bilateral flank pain. COMPARISON: CT a bdomen and pelvis 12/12/2017, renal ultrasound 01/26/2018. TECH NIQUE: Sonographic evaluation of the kidneys and urinary bladder was performed. FINDINGS: KIDNEYS: The right kidney measures 11.2 cm in length. Superior pole cortical cyst noted measuring 2.3 cm in greatest, not noted on the previous examination. 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 Normal contour and p arenchymal echogenicity. There is no hydronephrosis, nephrolithiasis or pe rinephric collection. The left kidney measures 11.5 cm in length. Small cortical cyst in the superior pole measures 1.4 cm in greatest dime nsion. Normal contour and parenchymal echogenicity. There is no hydr onephrosis, nephrolithiasis, mass lesion or perinephric collection. BLADDER: Normal. Partially visualized inferior vena cava a nd abdominal aorta are unremarkable. Aortic bifurcation was not visualized secondary to overlying bowel gas. IMPRESSION: 1. Bilateral renal cyst. 2. New heterogeneously hyperechoic les ion at the medial aspect of midportion to inferior pole of right kidney measuring 1.5 cm greatest PAGE 1 Signed Report (CONTINUED) Name: AGUSTÍN FLOOD 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 SL: [id number] at 1009 Reported and signed by: Erwin Bundy M.D. CC: Aiden Bay NP Technologist: Alma Briceno RDMS(BR)(AB) Trnflb Date/Time: 06/23/2018 (1009) DailySL7 Orig Print D/T: S: 06/23/2018 (1012) Probe: PAGE 2 Signed Report BASIC METABOLIC PANEL 2018-06-23 10:04:00* Test Item Value Reference Range Comments SODIUM (test code=NA) 137 mEq/L 134-147 POTASSIUM (test code=K) 3.7 mEq/L 3.4-5.0 CHLORIDE (test code=CL) 104 mEq/L 100-108 CARBON DIOXIDE (test code=CO2) 29 mEq/L 21-33 ANION GAP (test code=GAP) 8 0-20 GLUCOSE (test code=GLU) 283 mg/dL 70-110 BLOOD UREA NITROGEN (test code=BUN) 10 mg/dL 7-18 GLOMERULAR FILTRATION RATE (test code=GFR) 89.0 90-95 Units of measure=ml/min/1.73 m2 CREATININE (test code=CREAT) 0.9 mg/dL 0.6-1.3 CALCIUM (test code=CA) 8.5 mg/dL 8.0-10.5 [id number] 10:04:00* Test Item Value Reference Range Comments MAGNESIUM (test code=MAG) 1.70 mg/dL 1.8-2.4 HGBA1C%2018-06-23 10:03:00* Test Item Value Reference Range Comments HGBA1C% (test code=HGBA1C%) 14.0 %A1C 4.8-6.0 CBC W/AUTO [id number] 09:38:00* Test Item Value Reference Range Comments WHITE BLOOD CELL (test code=WBC) 4.38 x10 3/uL 4.5-11.0 RED BLOOD CELL (test code=RBC) 4.42 x10 6/uL 4.00-5.60 HEMOGLOBIN (test code=HGB) 11.8 g/dL 12.5-16.9 HEMATOCRIT (test code=HCT) 37.3 % 37.5-50.7 MEAN CELL VOLUME (test code=MCV) 84.4 fL 81.0-99.0 MEAN CELL HGB (test code=MCH) 26.7 pg 27.0-33.0 MEAN CELL HGB CONCETRATION (test code=MCHC) 31.6 g/dL 33.0-37.0 RED CELL DISTRIBUTION WIDTH CV (test code=RDW) 13.0 % 11.5-14.5 RED CELL DISTRIBUTION WIDTH SD (test code=RDW-SD) 40.3 fL 37.0-54.0 PLATELET COUNT (test code=PLT) 162 x10 3/uL 150-400 MEAN PLATELET VOLUME (test code=MPV) 11.6 fL 7.0-9.0 NEUTROPHIL % (test code=NT%) 60.3 % 56.0-77.0 IMMATURE GRANULOCYTE % (test code=IG%) 0.2 % 0.0-2.0 LYMPHOCYTE % (test code=LY%) 27.9 % 14.0-32.0 MONOCYTE % (test code=MO%) 9.1 % 4.8-9.0 EOSINOPHIL % (test code=EO%) 1.8 % 0.3-3.7 BASOPHIL % (test code=BA%) 0.7 % 0.0-2.0 NUCLEATED RBC % (test code=NRBC%) 0.0 % 0-0 NEUTROPHIL # (test code=NT#) 2.64 x10 3/uL 2.0-7.6 IMMATURE GRANULOCYTE # (test code=IG#) 0.01 x10 3/uL 0.00-0.03 LYMPHOCYTE # (test code=LY#) 1.22 x10 3/uL 1.0-3.8 MONOCYTE # (test code=MO#) 0.40 x10 3/uL 0.1-0.8 EOSINOPHIL # (test code=EO#) 0.08 x10 3/uL 0.0-0.2 BASOPHIL # (test code=BA#) 0.03 x10 3/uL 0.0-0.2 NUCLEATED RBC # (test code=NRBC#) 0.00 x10 3/uL 0.0-0.1 MANUAL DIFF REQUIRED (test code=MDIFF) NO [id number] 08:14:00* Test Item Value Reference Range Comments GLUBED (test code=GLUBED) 257 MG/DL 70-110 Performed by certified assistant refinery operator at [facility] [id number] 05:30:00* Test Item Value Reference Range Comments GLUBED (test code=GLUBED) > 600 MG/DL 70-110 Performed by certified assistant refinery operator at [facility] LACTIC ACID 2ND [id number] 01:41:00* Test Item Value Reference Range Comments LACTIC ACID 2ND REPEAT (test code=LACT2) 1.5 mmol/L 0.4-1.9 LACTIC ACID [id number] 20:30:00* Test Item Value Reference Range Comments LACTIC ACID REPEAT (test code=LACTR) 2.0 mmol/l 0.4-1.9 [id number] 20:25:00* Test Item Value Reference Range Comments GLUBED (test code=GLUBED) 255 MG/DL 70-110 Performed by certified assistant refinery operator at [facility] PROCALCITONIN (PCT)2018-06-22 18:06:00* Test Item Value Reference Range Comments PROCALCITONIN (PCT) (test code=PROCAL) 0.06 ng/mL 0.00-0.05 PROCALCITONIN (PCT) NORMAL RANGE (ADULT): <0.05 NG/ML. * a concentration <0.5 ng/mL represents a low risk of severe sepsis and/or septic shock.* a concentration >2 ng/mL represents a high risk of severe sepsis and/or septic shock.Nevertheless, concentrations <0.5 ng/mL do not exclude aninfection, on account of localized infections (withoutsystemic signs) which can be associated with such lowconcentrations, or a systemic infection in its initialstages (< 6 hours). Furthermore, increased procalcitonincan occur without infection. PCT concentrations between 0.5and 2.0 ng/mL should be interpreted taking into account thepatient's history. It is recommended to retest PCT within6-24 hours if any concentrations <2 ng/mL are obtained. BASIC METABOLIC [id number] 17:17:00* Test Item Value Reference Range Comments SODIUM (test code=NA) 129 mEq/L 134-147 POTASSIUM (test code=K) 4.1 mEq/L 3.4-5.0 CHLORIDE (test code=CL) 94 mEq/L 100-108 CARBON DIOXIDE (test code=CO2) 30 mEq/L 21-33 ANION GAP (test code=GAP) 9 0-20 GLUCOSE (test code=GLU) 560 mg/dL 70-110 BLOOD UREA NITROGEN (test code=BUN) 12 mg/dL 7-18 GLOMERULAR FILTRATION RATE (test code=GFR) 70.6 90-95 Units of measure=ml/min/1.73 m2 CREATININE (test code=CREAT) 1.1 mg/dL 0.6-1.3 CALCIUM (test code=CA) 8.3 mg/dL 8.0-10.5 HEPATIC FUNCTION [id number] 17:17:00* Test Item Value Reference Range Comments TOTAL PROTEIN (test code=PROT) 7.4 g/dL 6.4-8.2 ALBUMIN (test code=ALB) 2.70 g/dL 3.4-5.0 BILIRUBIN TOTAL (test code=BILT) 0.50 mg/dL 0.0-1.0 BILIRUBIN DIRECT (test code=BILD) 0.10 MG/DL 0.0-0.30 BILIRUBIN INDIRECT (test code=BILIND) 0.40 MG/DL SGOT/AST (test code=AST) 33 IUnit/L 15-37 SGPT/ALT (test code=ALT) 37 IUnit/L 15-65 ALKALINE PHOSPHATASE TOTAL (test code=ALKP) 155 IUnit/L 20-125 [id number] 17:17:00* Test Item Value Reference Range Comments LIPASE (test code=LIP) 57 IUnit/L 73-393 [id number] 17:17:00* Test Item Value Reference Range Comments TROPONIN-I (test code=TROPI) < 0.015 ng/mL 0.000-0.045 Negative: <=0.045 Positive: >=0.046 Correlation with serial results, other cardiac markers andclinical findings is necessary to determine the clinicalsignificance of this result. Results using different methodologies should not be comparedto one another as quantitative results may vary by method. ACETONE [id number] 17:17:00* Test Item Value Reference Range Comments ACETONE QUANT (test code=ACETN) NEGATIVE - <20mg/dL mg/dL NEG - <20 LACTIC ACID [id number] 17:07:00* Test Item Value Reference Range Comments LACTIC ACID POC (test code=LACTP) 2.5 MMOL/L 0.90-1.70 Performed by certified assistant refinery operator at [facility] BASIC METABOLIC [id number] 17:03:00* Test Item Value Reference Range Comments SODIUM (test code=NA) mEq/L 134-147 POTASSIUM (test code=K) mEq/L 3.4-5.0 CHLORIDE (test code=CL) mEq/L 100-108 CARBON DIOXIDE (test code=CO2) mEq/L 21-33 ANION GAP (test code=GAP) 0-20 GLUCOSE (test code=GLU) mg/dL 70-110 BLOOD UREA NITROGEN (test code=BUN) mg/dL 7-18 GLOMERULAR FILTRATION RATE (test code=GFR) 90-95 CREATININE (test code=CREAT) mg/dL 0.6-1.3 CALCIUM (test code=CA) mg/dL 8.0-10.5 HEPATIC FUNCTION [id number] 17:03:00* Test Item Value Reference Range Comments TOTAL PROTEIN (test code=PROT) g/dL 6.4-8.2 ALBUMIN (test code=ALB) g/dL 3.4-5.0 BILIRUBIN TOTAL (test code=BILT) mg/dL 0.0-1.0 BILIRUBIN DIRECT (test code=BILD) MG/DL 0.0-0.30 SGOT/AST (test code=AST) IUnit/L 15-37 SGPT/ALT (test code=ALT) IUnit/L 15-65 ALKALINE PHOSPHATASE TOTAL (test code=ALKP) IUnit/L 20-125 [id number] 17:03:00* Test Item Value Reference Range Comments LIPASE (test code=LIP) IUnit/L 73-393 [id number] 17:03:00* Test Item Value Reference Range Comments TROPONIN-I (test code=TROPI) ng/mL 0.000-0.045 ACETONE [id number] 17:03:00* Test Item Value Reference Range Comments ACETONE QUANT (test code=ACETN) NEGATIVE - <20mg/dL mg/dL NEG - <20 CBC W/AUTO [id number] 16:54:00* Test Item Value Reference Range Comments WHITE BLOOD CELL (test code=WBC) 4.56 x10 3/uL 4.5-11.0 RED BLOOD CELL (test code=RBC) 4.84 x10 6/uL 4.00-5.60 HEMOGLOBIN (test code=HGB) 12.9 g/dL 12.5-16.9 HEMATOCRIT (test code=HCT) 40.5 % 37.5-50.7 MEAN CELL VOLUME (test code=MCV) 83.7 fL 81.0-99.0 MEAN CELL HGB (test code=MCH) 26.7 pg 27.0-33.0 MEAN CELL HGB CONCETRATION (test code=MCHC) 31.9 g/dL 33.0-37.0 RED CELL DISTRIBUTION WIDTH CV (test code=RDW) 12.9 % 11.5-14.5 RED CELL DISTRIBUTION WIDTH SD (test code=RDW-SD) 39.7 fL 37.0-54.0 PLATELET COUNT (test code=PLT) 173 x10 3/uL 150-400 MEAN PLATELET VOLUME (test code=MPV) 12.8 fL 7.0-9.0 NEUTROPHIL % (test code=NT%) 57.4 % 56.0-77.0 IMMATURE GRANULOCYTE % (test code=IG%) 0.4 % 0.0-2.0 LYMPHOCYTE % (test code=LY%) 29.2 % 14.0-32.0 MONOCYTE % (test code=MO%) 11.2 % 4.8-9.0 EOSINOPHIL % (test code=EO%) 1.1 % 0.3-3.7 BASOPHIL % (test code=BA%) 0.7 % 0.0-2.0 NUCLEATED RBC % (test code=NRBC%) 0.0 % 0-0 NEUTROPHIL # (test code=NT#) 2.62 x10 3/uL 2.0-7.6 IMMATURE GRANULOCYTE # (test code=IG#) 0.02 x10 3/uL 0.00-0.03 LYMPHOCYTE # (test code=LY#) 1.33 x10 3/uL 1.0-3.8 MONOCYTE # (test code=MO#) 0.51 x10 3/uL 0.1-0.8 EOSINOPHIL # (test code=EO#) 0.05 x10 3/uL 0.0-0.2 BASOPHIL # (test code=BA#) 0.03 x10 3/uL 0.0-0.2 NUCLEATED RBC # (test code=NRBC#) 0.00 x10 3/uL 0.0-0.1 MANUAL DIFF REQUIRED (test code=MDIFF) NO
[2018-07-29] MEDS ORDERED: ONDANSETRON HCL INJ 2MG/ML 2ML 2 MG/ML VIAL IV ONE (14:45)
[2018-07-29] MEDS ORDERED: HYDROMORPHONE 2MG/ML 2 MG/ML ML IV ONE ×3 (14:45→20:00)
== END 2018-07-29 00:25 | disposition home or self-care (01) ==
LOC: ER 21:45
DX: Z46.6 Encounter for fitting and adjustment of urinary device (principal)
CPT/HCPCS: 51702; 99283; J2405